=== PATIENT | male | born 1990 | race Caucasian/White ===

== ENCOUNTER 2018-02-05 18:38 | Emergency (ER) | payer OTHER ==
[~2018-02-05] VITALS: Ht 188 cm; Wt 153.9 kg
[2018-02-05 18:47] VITALS: BP 122/82
[2018-02-05] MEDS ORDERED: OMEP-110 PO (18:50)
[2018-02-05] MEDS ORDERED: IBUPROFEN 200 MG TABLET PO ONE (19:30)
[2018-02-05] MEDS ORDERED: IBUPROFEN 200 MG TABLET ONE (19:49)
== END 2018-02-05 20:40 | disposition home or self-care (01) ==
LOC: ED 19:11
DX: S93.492A Sprain of other ligament of left ankle, initial encounter (principal); K21.9 Gastro-esophageal reflux disease without esophagitis; W01.0XXA Fall on same level from slipping, tripping and stumbling without subsequent striking against object, initial encounter; Y93.01 Activity, walking, marching and hiking; Y99.8 Other external cause status; Y92.89 Other specified places as the place of occurrence of the external cause
CPT/HCPCS: 99284